=== PATIENT | female | born 1960 | race Caucasian/White ===

== ENCOUNTER 2023-12-03 08:29 | Emergency (ER) | payer OTHER ==
[~2023-12-03] VITALS: Ht 160 cm; Wt 68.0 kg
[2023-12-03 08:29] VITALS: BP_SYST 111; PULSE 202; RESP 23; TEMP 96.2; O2SAT 97
[2023-12-03] MEDS ORDERED: ADENOSINE 6MG/2ML VIAL ONE (08:57)
[2023-12-03] MEDS: ADENOSINE 6MG/2ML VIAL IVP ONE (09:26)
[2023-12-03 09:28] LABS: BASOPHILS % (AUTO) 0.3 % (0.0-2.0); EOSINOPHILS # (AUTO) 0.1 K/uL (0.0-0.4); EOSINOPHILS % (AUTO) 1.1 % (0.0-4.0); HEMATOCRIT 41.6 % (36-48); HEMOGLOBIN 13.8 g/dL (12.0-16.0); LYMPHOCYTES # (AUTO) 2.6 K/uL (1.0-5.5); MEAN CORPUSCULAR HEMOGLOBIN 30 pg (27-31); MEAN CORPUSCULAR HGB CONC 33 % (32-36); MEAN CORPUSCULAR VOLUME 92 fL (79.0-98.0); MONOCYTES # (AUTO) 0.4 K/uL (0.0-1.0); NEUTROPHILS % (AUTO) 68.6 % (40.0-70.0); PLATELET COUNT (AUTO) 285 K/uL (130-430); RED BLOOD CELL COUNT(AUTO) 4.52 MIL/uL (4.2-6.2); RED CELL DISTRIBUTION WIDTH 13.9 % (9.0-15.0); WHITE BLOOD COUNT (AUTO) 10.2 K/uL (4.8-10.8)
[2023-12-03 10:06] LABS: CREATININE 0.98 mg/dL (0.55-1.30); PHOSPHORUS 5.3 mg/dL (2.7-4.5); POTASSIUM 3.7 mmol/L (3.5-5.1); THYROID STIMULATING HORMONE 1.22 uIu/mL (0.34-4.82)
[2023-12-03 10:36] VITALS: BP_SYST 124; PULSE 98; RESP 18; TEMP 96.6; O2SAT 94
== END 2023-12-03 10:38 | disposition home or self-care (01) ==
LOC: SED 08:29
DX: I47.10 Supraventricular tachycardia, unspecified (principal); R00.2 Palpitations; R42 Dizziness and giddiness
CPT/HCPCS: 99291; 96374; 80048; 83735; 84100; 84443; 85025; 36415; 93005; J0153